=== PATIENT | female | born 1965 | race Caucasian/White ===

== ENCOUNTER 2018-12-27 11:01 | Emergency (ER) | payer SELFPAY ==
[2018-12-27 11:18] VITALS: BP 114/77
--- NOTE | 2018-12-27 11:42 | ER Document Report ---
HPI - HPI Patient complains to provider of: medication refill Time Seen by Provider: 12/27/18 11:27 Onset: Other - 10 days ago Quality of pain: No pain Pain Level: Denies Context: Patient presents emergency department with request for medication refill refill for her Celexa and trazodone. Patient reports she ran out 10 days ago. She reports that she had refills left on her medication but the refill expiration date ran out. She reports she has been prescribed the medication from the [facility]. She has an appointment on January 10. She thought she could hold out until January 10 but she was becoming very irritable having trouble sleeping. She denies suicidal or homicidal ideations. She reports she snaps very easily. Denies All other symptoms such as fever vomiting abdominal cramps nausea diarrhea. Associated Symptoms: None Exacerbated by: Denies Relieved by: Denies Similar symptoms previously: No Recently seen / treated by doctor: No - REPRODUCTIVE Reproductive: DENIES: : Past Medical History - General Information source: Patient - Social History Smoking Status: Current Every Day Smoker Cigarette use (# per day): Yes Frequency of alcohol use: Social Drug Abuse: None Family History: None Patient has suicidal ideation: No Patient has homicidal ideation: No Psychiatric Medical History: Reports: Hx Anxiety, Hx Depression Past Surgical History: Reports: Hx Orthopedic Surgery Vertical Provider Document - CONSTITUTIONAL Agree With Documented VS: Yes Exam Limitations: No Limitations General Appearance: WD/WN, No Apparent Distress - calm - INFECTION CONTROL TRAVEL OUTSIDE OF THE [place] IN LAST 30 DAYS: No - HEENT HEENT: Atraumatic, Normocephalic - NECK Neck: Supple - RESPIRATORY Respiratory: No Respiratory Distress - CARDIOVASCULAR Cardiovascular: Regular Rate - MUSCULOSKELETAL/EXTREMETIES Musculoskeletal/Extremeties: MAEW, FROM - NEURO Level of Consciousness: Awake, Alert, Appropriate - DERM Integumentary: Warm, Dry Course - Re-evaluation Re-evalutation: 12/27/18 11:48 Unable to verify medication dosages due to December and pharmacy is closed. Discussed dosages with [facility], she advised trazodone and Celexa at lowest doses since patient been off of the medications for the past 10 days. Patient instructed on dosages and instructed to follow-up with the [facility] as scheduled. she verbalized understanding. Dictation of this chart was performed using voice recognition software; therefore, there may be some unintended grammatical errors. - Vital Signs Vital signs: Temp Pulse Resp BP Pulse Ox 98.4 F 84 16 114/77 97 12/27/18 11:16 12/27/18 11:16 12/27/18 11:16 12/27/18 11:16 12/27/18 11:16 Discharge - Discharge Clinical Impression: Medication refill Condition: Stable Disposition: HOME, SELF-CARE Instructions: Antidepressants ([facility]) Additional Instructions: *You have been treated for medication refill *Take medication as prescribed Follow-up with the [facility] as scheduled January 10 *Return to ED for signs of worsening condition, changes, needs Prescriptions: Trazodone HCl 50 mg PO QHS #14 tablet Citalopram Hydrobromide [Celexa 10 mg Tablet] 10 mg PO DAILY #14 tablet
== END 2018-12-27 11:53 | disposition home or self-care (01) ==
LOC: ER 11:01
DX: Z76.0 Encounter for issue of repeat prescription (principal)
CPT/HCPCS: 99281